=== PATIENT | female | born 2000 | race Two or more races ===

== ENCOUNTER 2024-05-08 18:09 | Emergency (ER) | payer MEDICAID, SELFPAY ==
[2024-05-08 18:21] VITALS: BP 95/56; PULSE 79; RESP 19; TEMP 36.7; O2SAT 99; BMI 27.3
--- NOTE | 2024-05-08 18:40 | XR_ITS ---
Examination: Complete OB ultrasound, less than 14 weeks, transabdominal Date and time of exam: May 08, 2024 at 1929 hrs. Indications: Onset vaginal bleeding with pelvic pain today Technique: Obstetrical ultrasound images less than 14 weeks performed via transabdominal imaging Findings: A normal shaped single intrauterine gestation is present in the uterus. pole 2.9 cm corresponds to 9 weeks 5 days gestational age Cardiac motion 176 BPM No subchorionic hemorrhage Ultrasonographic survey of visible and placental structures unremarkable. Amniotic fluid volume appears appropriate for this estimated gestational age. Right ovary 3.6 x 1.8 x 2.3 cm arterial flow Left ovary 2.0 x 1.0 x 1.5 cm arterial flow Impression: Viable intrauterine gestation 9 weeks 5 days No subchorionic hemorrhage.
--- NOTE | 2024-05-08 18:40 | PD.EDRME ---
Rapid Medical Screening Exam [facility] Arrival date/time: 05/08/24 18:09 24F at approximately 10 weeks and with no significant PMH presents to ED with 1 day of vaginal bleeding/spotting and pelvic pain. Patient denies dysuria. Chief Complaint: Vaginal Bleeding Time Seen by Provider: 05/08/24 21:42 Vital signs: Vital Signs Temperature 98.1 F 05/08/24 18:21 Pulse Rate 79 05/08/24 18:21 Respiratory Rate 19 05/08/24 18:21 Blood Pressure 95/56 L 05/08/24 18:21 Pulse Oximetry (%) 99 05/08/24 18:21 Oxygen Delivery Method Room Air 05/08/24 18:21
[2024-05-08 19:17] LABS: Basophils % (Auto) 0 % (0-2.5); Eosinophils # (Auto) 0.1 Thou/mm3 (0.0-0.5); Eosinophils % (Auto) 1 % (0-10); Hematocrit 32.1 % (36.0-46.0); Hemoglobin 11.1 g/dL (12.0-16.0); Immature Granulocytes % (Auto) 0 % (0-0); Immature Granulocytes Auto 0.02 Thou/mm3 (0.00-0.00); Lymphocytes # (Auto) 1.8 Thou/mm3 (1.0-4.8); Lymphocytes % (Auto) 23 % (10-50); Mean Corpuscular HGB Conc 34.6 g/dl (31.0-37.0); Mean Corpuscular Hemoglobin 30.2 pg (25.0-35.0); Mean Corpuscular Volume 87 fL (80-100); Monocytes # (Auto) 0.5 Thou/mm3 (0.0-0.8); Monocytes % (Auto) 6 % (0-12); Neutrophils # (Auto) 5.6 Thou/mm3 (1.8-7.7); Neutrophils % (Auto) 69 % (37-80); Nucleated Red Blood Cell % 0 /100 WBC (0); Platelet Count 221 Thou/mm3 (140-440); RDW Standard Deviation 38.9 fL (36.4-46.3); Red Blood Count 3.68 Miln/mm3 (4.00-5.20)
[2024-05-08 19:45] LABS: Collection Type, Urine Clean Catch
[2024-05-08 20:17] LABS: Alanine Aminotransferase 9 U/L (10-49); Albumin/Globulin Ratio 1.5 (1.2-2.2); Alkaline Phosphatase 35 U/L (46-116); Anion Gap 5 (7-16); Aspartate Amino Transferase 13 U/L (0-34); BUN/Creatinine Ratio 10 Ratio (12-20); Beta HCG,Quantitative 77390 mIU/mL (<5.0); Bilirubin,Total 0.2 mg/dL (0.3-1.2); Blood Urea Nitrogen 6 mg/dL (9-23); Calcium 9.3 mg/dL (8.3-10.6); Calcium (Corrected) 9.3 mg/dL (8.5-10.1); Carbon Dioxide 24.4 mMol/L (20.0-31.0); Chloride 106 mMol/L (98-107); Creatinine (Component) 0.6 mg/dL (0.6-1.3); Estimated Creatinine Clearance 131.2 mL/min (>60); Globulin 2.7 gm/dL (2.3-3.5); Glucose 97 mg/dL (74-106); Osmolality,Calculated 267 (275-295); Potassium 3.4 mMol/L (3.4-5.1); Sodium 135 mMol/L (136-145); Total Protein 6.7 gm/dL (5.7-8.2); eGFR > 60 See Note
[2024-05-08 20:21] LABS: Bilirubin,Urine Negative (Negative); Blood,Urine 3+ (Negative); Clarity,Urine Clear (Clear/Hazy); Color,Urine Colorless (Lt Yel-Yel); Glucose, Urine Negative (Negative); Ketones,Urine Negative (Negative); Leukocyte Esterase,Urine Negative (Negative); Nitrite,Urine Negative (Negative); PH,Urine 7.5 (5.0-7.0); Protein,Urine Negative (Neg - Trace); RBC,Urine 2 /hpf (0-3); Specific Gravity,Urine 1.009 (1.001-1.035); Squamous Epithelial Cell,Urine 3 /hpf (0-5); Urobilinogen,Urine Negative mg/dL (0.0-1.0); WBC,Urine 2 /hpf (0-5)
--- NOTE | 2024-05-08 21:46 | PD.EDVAGBL ---
ED OB Contraction Preg RMI/HPI General Chief complaint: Vaginal Bleeding Stated complaint: Vaginal bleeding today, 10 weeks OB Time Seen by Provider: 05/08/24 21:42 Arrival date/time: 05/08/24 18:09 24F at approximately 10 weeks and with no significant PMH presents to ED with 1 day of vaginal bleeding/spotting and pelvic pain. Patient denies dysuria. Limitations: no limitations Related Data Home Medications ?Medication ?Instructions ?Recorded ?Confirmed No Known Home Medications 04/01/24 04/01/24 Allergies Allergy/AdvReac Type Severity Reaction Status Date / Time No Known Allergies Allergy Verified 04/01/24 07:34 Review of Systems Review of Systems Systems Reviewed: All systems reviewed, normal except as documented Constitutional Constitutional: Reports system reviewed and no additional complaints, except as documented, Denies fever(s) and Denies headache(s) ENT Ears, Nose, Mouth, and Throat: Denies disequilibrium and Denies headache(s) Cardiovascular Cardiovascular: Reports system reviewed and no additional complaints, except as documented, Denies chest pain and Denies dyspnea Respiratory Respiratory: Reports system reviewed and no additional complaints, except as documented, Denies cough and Denies dyspnea Gastrointestinal Gastrointestinal: Reports system reviewed and no additional complaints, except as documented, Denies abdominal pain, Denies nausea and Denies vomiting Genitourinary Genitourinary: Reports as per HPI, Reports abnormal vaginal bleeding and Reports pelvic pain Neurologic Neurologic: Reports system reviewed and no additional complaints, except as documented, Denies confusion, Denies disequilibrium and Denies headache(s) Psychiatric Psychiatric: Denies confusion Past Medical History Past Medical History NEUROLOGIC: Negative Neurological Disorders CARDIAC: Negative Cardiac Disorders or Congestive Heart Failure RESPIRATORY: Negative Chronic Obstructive Pulmonary Disease (COPD) GASTROINTESTINAL: Negative Gastrointestinal Disorders GENITOURINARY: Negative Genitourinary Disorders or Renal Disease REPRODUCTIVE: Positive Previous Pregnancies (x1) MUSCULOSKELETAL: Negative Musculoskeletal Disorders ENDOCRINE: Negative Endocrine Disorders, Diabetes Mellitus Type 1 or Diabetes Mellitus Type 2 HEMATOLOGIC: Negative Blood Disorders OTHER HISTORY: Positive Chicken Pox; Negative Autoimmune Disease, Blood Transfusions, Anesthesia Reactions or Cancer Family History FAMILY HISTORY: Positive Family Surgery; Negative Family Psychiatric Problems, Family Respiratory Disorders, Family Cardiac Disorders, Family Gastrointestinal Problems, Family Cancer or Family Anesthesia Reaction Surgical History SURGICAL: Positive Section Social History SMOKING STATUS: Never smoker ED Exam General Limitations: Present no limitations General appearance: Present alert and in no apparent distress Head Head exam: Present atraumatic Eye Eye exam: Present normal appearance, PERRL and EOMI ENT ENT exam: Present normal exam, normal oropharynx and mucous membranes moist Neck Neck exam: Present normal inspection, full ROM and trachea midline Chest Chest inspection: Present normal inspection and symmetric chest wall rise Respiratory Respiratory exam: Present normal lung sounds bilaterally Cardiovascular Cardiovascular exam: Present regular rate, normal rhythm and normal heart sounds Abdominal Exam Abdominal exam: Present soft and normal bowel sounds Extremities Exam Extremities exam: Present normal inspection and full ROM Back Exam Back exam: Present normal inspection and full ROM Neurological Exam Neurological exam: Present alert, oriented X3 and CN II-XII intact Psychiatric Psychiatric exam: Present normal affect and normal mood Skin Skin exam: Present warm, dry, intact and normal color Course Quality Measures none Orders Category Date Time Status US OB <= 14 weeks fetus Stat Exams 05/08/24 18:40 Completed ABO/RH Type Stat Lab 05/08/24 18:50 Completed Beta HCG,Quantitative Stat Lab 05/08/24 18:50 Completed CBC Stat Lab 05/08/24 18:50 Completed CMP [Comprehensive Metabolic Panel] Stat Lab 05/08/24 18:50 Completed UA [Urinalysis] Stat Lab 05/08/24 19:07 Completed Urine Culture Stat Lab 05/08/24 19:07 Received Vital Signs Vital signs: Vital Signs Temperature 98.1 F 05/08/24 18:21 Pulse Rate 79 05/08/24 18:21 Respiratory Rate 19 05/08/24 18:21 Blood Pressure 95/56 L 05/08/24 18:21 Pulse Oximetry (%) 99 05/08/24 18:21 Oxygen Delivery Method Room Air 05/08/24 18:21 O2 at 99% on RA and WNLs Vaginal Bleeding MDM Narrative MDM Narrative: 24F at approximately 10 weeks and with no significant PMH presents to ED with 1 day of vaginal bleeding/spotting and pelvic pain. Patient denies dysuria. Physical exam reveals no pelvic tenderness. Patient is afebrile, calm, and alert. US reveals IUP with normal FHR. Beta HCG around 77k. No leukocytosis. Mild anemia. CMP unremarkable. UA clean. Health Outreach Worker given. Patient data [place] [facility] [place] Clinical information provided by:: patient Social determinants that could affect healthcare access:: none Patient has the following chronic illnesses:: none How is presenting disease/condition affected by chronic disease/condition?: no chronic disease Evaluation data The following diagnostics were reviewed and interpreted by me:: lab results and radiology exam(s) Lab and/or radiology exams considered but not ordered:: ordered Interpretation Summary: above Medications / Prescriptions Medications or Prescriptions considered but not ordered:: not ordered Medication administrations:: n/a Consultations Consultation(s) initiated? (list below): No Diagnosis Vaginal Bleeding Differential Diagnosis: missed , threatened , dysfunctional uterine bleeding, menometrorrhagia, incomplete , ectopic without intrauterine and vaginal bleeding Most likely diagnosis given after review of the tests above:: vaginal bleeding Admission Indicated Admission indicated?: not indicated Admission Request Was there a request for admission?: No Disposition Plan Disposition Plan: Discharge Discharge Attestation Discharge Attestation: The patient and all family members were given an opportunity to ask questions and understood the discharge instructions. Discharge instructions specifically effects, indications for sooner follow up or return to the emergency department, and the expected course of current diagnosis. Patient condition: Stable Discharge Plan Plan Patient Disposition: HOME (Self Care) Disposition Comment: Stable Prescriptions/Referrals Prescriptions/Med Rec: No Action No Known Home Medications Referrals: Pk Matias MD [Primary Care Provider] - In 1 week Problem List Clinical Impression: Vaginal bleeding Patient/Caregiver Discharge Instructions Additional Instructions: Please follow-up with PCP/OBGYN within 24-48 hours and return immediately if symptoms worsen. Print Language: Swedish Stand Alone Forms: Patient Portal Info Letter BRINA/ELSIE Supervising Physician KRISTINA Supervising Physician: Dr. León
[2024-05-08 21:54] VITALS: BP 100/65; PULSE 80; RESP 16; TEMP 36.7; O2SAT 99
== END 2024-05-08 21:58 | disposition home or self-care (01) ==
PROVIDERS: Physician Assistant; Emergency Provider Emergency Medicine; PCP Family Medicine
DX: O20.9 Hemorrhage in early pregnancy, unspecified (principal); Z3A.09 9 weeks gestation of pregnancy
CPT/HCPCS: 36415; 76801; 80053; 81001; 84702; 85025; 86900; 86901; 87086; 99284

== ENCOUNTER 2024-06-26 15:33 | Emergency (ER) | payer MEDICAID, SELFPAY ==
--- NOTE | 2024-06-26 16:16 | PC.NURSE ---
called pt back, no answer at this time
--- NOTE | 2024-06-26 16:37 | PC.NURSE ---
CALLED PT BACK, NO ANSWER AT THIS TIME
--- NOTE | 2024-06-26 17:05 | PC.NURSE ---
CALLED PT BACK, NO ANSWER AT THIS TIME
== END 2024-06-26 17:23 | disposition left against medical advice (07) ==
PROVIDERS: Emergency Provider Emergency Medicine
DX: Z53.21 Procedure and treatment not carried out due to patient leaving prior to being seen by health care provider (principal)

== ENCOUNTER 2024-11-15 09:47 | Observation (INO) | payer MEDICAID, SELFPAY ==
[2024-11-15] VITALS (9 sets, daily range): BP systolic 115; BP diastolic 57; PULSE 63–74; RESP 18–98; TEMP 36.5; O2SAT 97–98; BMI 31.8
== END 2024-11-15 11:17 | disposition home or self-care (01) ==
PROVIDERS: Admitting Provider Obstetrics & Gynecology; Visit Provider Obstetrics & Gynecology
DX: Z34.83 Encounter for supervision of other normal pregnancy, third trimester (principal); Z3A.37 37 weeks gestation of pregnancy
CPT/HCPCS: 59899

== ENCOUNTER 2024-11-24 03:20 | Observation (INO) | payer MEDICAID, SELFPAY ==
[2024-11-24] VITALS (16 sets, daily range): BP systolic 118; BP diastolic 64; PULSE 56–82; RESP 18–98; TEMP 36.7; O2SAT 97–100; BMI 31.8
[2024-11-24] MEDS: RINGERS LACTATED 1000 ML 1,000 ML 999 ML IV (04:02)
[2024-11-24] MEDS: TERBUTALINE SULF INJ 1 MG/ML VIAL 0.25 MG SC (04:08)
== END 2024-11-24 05:10 | disposition home or self-care (01) ==
PROVIDERS: Admitting Provider Obstetrics & Gynecology; Visit Provider Obstetrics & Gynecology
DX: O47.1 False labor at or after 37 completed weeks of gestation (principal); Z3A.38 38 weeks gestation of pregnancy
CPT/HCPCS: 59899; 96372; G0378; J3105; J7120

== ENCOUNTER 2024-12-04 11:45 | Inpatient (IN) | payer MEDICAID, SELFPAY ==
[2024-12-04] VITALS (24 sets, daily range): BP systolic 107–137; BP diastolic 58–76; PULSE 58–95; RESP 12–97; TEMP 36.4–36.8; O2SAT 95–100; BMI 34.4
[2024-12-04] MEDS: FAMOTIDINE INJ 10 MG/ML VIAL 2 ML 20 MG IV (13:12)
[2024-12-04] MEDS: METOCLOPRAMIDE INJ 5 MG/ML VIAL 2 ML 10 MG IVP (13:12)
[2024-12-04] MEDS: ceFAZolin/D5W 2 GM IV 2 GM/100 ML BAG IV (13:12)
[2024-12-04 13:13] LABS: Basophils % (Auto) 1 % (0-2.5); Eosinophils # (Auto) 0.2 Thou/mm3 (0.0-0.5); Eosinophils % (Auto) 2 % (0-10); Hematocrit 34.2 % (36.0-46.0); Hemoglobin 11.8 g/dL (12.0-16.0); Immature Granulocytes % (Auto) 1 % (0-0); Immature Granulocytes Auto 0.07 Thou/mm3 (0.00-0.00); Lymphocytes # (Auto) 1.5 Thou/mm3 (1.0-4.8); Lymphocytes % (Auto) 20 % (10-50); Mean Corpuscular HGB Conc 34.5 g/dl (31.0-37.0); Mean Corpuscular Hemoglobin 29.5 pg (25.0-35.0); Mean Corpuscular Volume 86 fL (80-100); Monocytes # (Auto) 0.6 Thou/mm3 (0.0-0.8); Monocytes % (Auto) 8 % (0-12); Neutrophils # (Auto) 5.1 Thou/mm3 (1.8-7.7); Neutrophils % (Auto) 69 % (37-80); Nucleated Red Blood Cell % 0 /100 WBC (0); Platelet Count 194 Thou/mm3 (140-440); RDW Standard Deviation 42.6 fL (36.4-46.3); White Blood Count 7.4 Thou/mm3 (3.6-11.0)
--- NOTE | 2024-12-04 13:21 | PD.LDHP ---
Documentation for date of: 12/04/24 OB Labor/Induct. HPI History of Present Illness : 2 Term pregnancies: 1 pregnancies: 0 Living children: 1 History of Abortions: Spontaneous and Elective: 0 History of sections: No History of : No History of present illness: 24 y/o , with previous Csection , was seen earlier in the office with concerns of contractions which are regular and painful. Patient showed regular contraction on NST and had an occasional late deceleration on admission. Denied any leaking bleeding . was complicated by gestational diabetes controlled by diet and exrecise. No other complications History of Present Dating criteria: LMP confirmed by 2nd trimester US Abnormal ultrasound findings: anatomy posterior placenta Normal anatomy , Macrosomia Past Medical History Surgical History SURGICAL: Negative Section Meds Home Medications and Allergies Home Medications ?Medication ?Instructions ?Recorded ?Confirmed ?Type vitamin-ferrous fumarate 1 tab PO QDAY 11/24/24 12/04/24 History 28 mg iron-folic acid 800 mcg tablet ( Tablet) Allergies Allergy/AdvReac Type Severity Reaction Status Date / Time No Known Allergies Allergy Verified 12/04/24 12:17 OB Exam Physical Exam Vital signs: Pulse Ox 100 12/04/24 13:17 Constitutional Constitutional: no acute distress Routine HEENT Exam Head: Present normocephalic and atraumatic Eye: Present EOMI and PERRL ENT: Present mucous membranes moist Routine Neck Exam Neck: Present supple and trachea midline Routine Cardiovascular Exam Cardiovascular: Present RRR Routine Abdominal Exam Abdominal: Present soft and normoactive bowel sounds Detailed Labor and Delivery Exam Comments: fingertip Regular contractions Routine Extremities Exam Extremities: Present full ROM Routine Skin Exam Skin: Present intact, dry and warm Routine Neurological Exam Neurological: Present alert, oriented X3 and CN II-XII intact Routine Psychiatric Exam Psychiatric: Present normal affect and normal thought process OB Results Labs 12/04/24 19:52 Labs: Short CBC 12/04/24 Range/Units 12:55 WBC 7.4 (3.6-11.0) Thou/mm3 Hgb 11.8 L (12.0-16.0) g/dL Hct 34.2 L (36.0-46.0) % Plt Count 194 (140-440) Thou/mm3 Impressions Impression: 24 y/o @39w5d per 2nd trimester US admitted for RLTCS GDM Diet controlled Anatomy normal , macrosomia Occasional late decel recovered with maneovers OB Assessment & Plan Additional Plan Additional Plan Comment: DVT prophylaxis antibiotic prophylaxis
[2024-12-04 14:36] LABS: Syphilis Nonreactive (Nonreactive)
[2024-12-04] MEDS: OXYTOCIN in NS 20 units 20 UNIT/1,000 ML BAG 125 UNIT IV ×2 (14:46→22:55)
[2024-12-04] MEDS: ONDANSETRON INJ 2 MG/ML INJ 2 ML 4 MG IVP (15:17)
[2024-12-04] MEDS: KETOROLAC INJ 30 MG/ML VIAL IVP ×2 (15:18→23:56)
[2024-12-04] MEDS: DiphenhydrAMINE INJ 50 MG/ML VIAL 25 MG IVP (17:31)
[2024-12-04 20:28] LABS: Basophils % (Auto) 0 % (0-2.5); Eosinophils # (Auto) 0.1 Thou/mm3 (0.0-0.5); Eosinophils % (Auto) 1 % (0-10); Hematocrit 33.9 % (36.0-46.0); Hemoglobin 11.5 g/dL (12.0-16.0); Immature Granulocytes % (Auto) 1 % (0-0); Immature Granulocytes Auto 0.07 Thou/mm3 (0.00-0.00); Lymphocytes # (Auto) 1.2 Thou/mm3 (1.0-4.8); Lymphocytes % (Auto) 12 % (10-50); Mean Corpuscular HGB Conc 33.9 g/dl (31.0-37.0); Mean Corpuscular Hemoglobin 29.3 pg (25.0-35.0); Mean Corpuscular Volume 86 fL (80-100); Monocytes # (Auto) 0.7 Thou/mm3 (0.0-0.8); Monocytes % (Auto) 7 % (0-12); Neutrophils # (Auto) 8.3 Thou/mm3 (1.8-7.7); Neutrophils % (Auto) 80 % (37-80); Nucleated Red Blood Cell % 0 /100 WBC (0); Platelet Count 183 Thou/mm3 (140-440); Red Blood Count 3.93 Miln/mm3 (4.00-5.20); White Blood Count 10.4 Thou/mm3 (3.6-11.0)
--- NOTE | 2024-12-04 22:45 | OBDSUM_ITS ---
Data (Garnica) Data Hx Section: No : 2 Term: 1 : 0 Livin Abortions: Spontaneous & Theraputic: 0 Delivery Data (Garnica) Labor Data Initiation of labor: Spontaneous Induction/Augmentation Agent: None ROM date: 12/04/24 ROM time: 13:51 Amniotic membrane rupture type: Artificial Amniotic fluid description: Clear Delivery Data Onset of labor date: 12/04/24 Onset of labor time: 13:52 Complete dilation date: 12/04/24 Complete dilation time: 13:52 delivery date: 12/04/24 delivery time: 13:52 Gestational age (weeks): 39 Gestational age (days): 5 Placenta delivery date: 12/04/24 Placenta delivery time: 13:53 Stage 1 total time: Labor - Stage 1 Duration 0 minutes Delivered by: Deja CASILLAS Delivery nurse: Marcia [place] nurse: arnel Networking Technology Instructor at delivery: No Support person(s) at delivery: patient's friend Delivery Method Delivery method: Low Transverse Presentation: Vertex Anesthesia Type Anesthesia Type: None Placenta Placenta delivery description: Manual Removal Cord blood sent to lab: Yes cord blood collection: Cord Blood Type EBL Estimated blood loss (ml): 500 Umbilical Cord cord description: 3 Vessels Data (Garnica) Data order: 1 's gender: Female weight (gms): 3710 g Weight (pounds): 8 lbs and 2.9 ozs 1 minute: 8 5 minutes: 9
--- NOTE | 2024-12-04 22:48 | PD.GYNPROC ---
Operative Note - REPEATER OPERATOR Procedure Date of procedure: 12/04/24 Procedure Performed: repeat Low transverse Csection Indication: previous Csection x1 Pre-Op diagnosis: same Post-Op diagnosis: same Anesthesia type: Spinal Procedure description: Informed consent was obtained and the patient was taken to the operating room.? Identity was confirmed by double identifiers and she was placed on the operating table.The abdomen and perineum were prepped in the usual sterile fashion and a Holt catheter was placed to continuous drainage.? Sterile drapes were applied.??A Pfannenstiel skin incision was made with a scalpel and carried to the subcutaneous fat up to the rectus fascia.? The rectus fascia was incised on either side of the midline and the incisions were extended bilaterally.? The fascia was gently dissected off the ventral surface of the rectus muscle only superiorly. peritoneum opened after making sure no adhesions are there underneath. bladder flap carefully created, then hysterotomy incision made and extended bluntly with finger. Rupture of membranes revealed clear fluid. The baby was found cephalic presentation and was delivered via vaccum assisted delivery. the umbilical cord , was doubly clamped, divided and the was handed over to the waiting team. The placenta delivered by controlled cord traction . The interior of the uterus was now thorougly cleaned of all blood and debris and membranes.?The? hysterotomy was closed using 0 vicryl suture in double layers. Once the repair was completed the hysterotomy was inspected, was noted to be adequately hemostatic. surgicele powder used for hemostaisi. Then the rectus fascia was repaired using Vicryl 0 in a running fashion.? The subcutaneous layer was now, approximated with 3-0 vicryl in double layers.? All bleeding points were cauterized using the Bovie.?The skin was closed using 4-0 Monocryl in a subcuticular fashion.? The skin was cleaned and a sterile dressing was applied. The patient was now undraped, the abdomen and back were thoroughly cleaned and she was now transferred to the recovery room in a stable Estimated blood loss (ml): 500 Surgical staff Operation Date: 12/04/24 13:15 Case Staff SUGAR GRINDER: Neo Downey RN First Assistant: Makenna Aly Diagnosis Problem List Completed Was Problem List Reviewed/Reconciled?: Yes
[2024-12-05] MEDS: HYDROcodone/APAP 5/325 TABLET 2 TAB PO ×3 (01:58→19:20)
[2024-12-05 04:28] VITALS: BP 114/63; PULSE 79; RESP 17; TEMP 36.5; O2SAT 98
[2024-12-05] MEDS: KETOROLAC INJ 30 MG/ML VIAL IVP (06:52)
[2024-12-05 08:00] VITALS: BP 109/57; PULSE 69; RESP 18; TEMP 36.3; O2SAT 98
--- NOTE | 2024-12-05 08:53 | ESPR_ITS ---
Subjective Subjective Interval history: stephany is doing well, denied any fever , vaginal bleeding , pain . Has been tolerating diet , no nausea vomitting Exam Vital Signs Temp Pulse Resp BP Pulse Ox O2 Del Method 97.7 F 79 17 114/63 98 Room Air 12/05/24 04:28 12/05/24 04:28 12/05/24 04:28 12/05/24 04:28 12/05/24 04:28 12/05/24 04:28 Constitutional Constitutional: no acute distress Routine HEENT Exam Head: Present normocephalic and atraumatic Eye: Present EOMI and PERRL ENT: Present mucous membranes moist Routine Neck Exam Neck: Present supple and trachea midline Routine Respiratory Exam Respiratory: Present chest non-tender, lungs clear, normal breath sounds and no resp distress Routine Cardiovascular Exam Cardiovascular: Present RRR Routine Abdominal Exam Abdominal: Present soft and normoactive bowel sounds Routine Extremities Exam Extremities: Present full ROM Routine Skin Exam Skin: Present intact, dry and warm Routine Neurological Exam Neurological: Present alert, oriented X3 and CN II-XII intact Routine Psychiatric Exam Psychiatric: Present normal affect and normal thought process Objective Labs 12/04/24 19:52 Labs: Laboratory Results - last 24 hr 12/04/24 12/04/24 12:55 19:52 WBC 7.4 10.4 D RBC 4.00 3.93 L Hgb 11.8 L 11.5 L Hct 34.2 L 33.9 L MCV 86 86 MCH 29.5 29.3 MCHC 34.5 33.9 RDW Std Deviation 42.6 43.0 Plt Count 194 183 Neut % (Auto) 69 80 Lymph % (Auto) 20 12 Alger % (Auto) 8 7 Eos % (Auto) 2 1 Baso % (Auto) 1 0 Neut # (Auto) 5.1 8.3 H Lymph # (Auto) 1.5 1.2 [place] # (Auto) 0.6 0.7 Eos # (Auto) 0.2 0.1 Baso # (Auto) 0.0 0.0 Immature Gran # (Auto) 0.07 H 0.07 H Absolute Nucleated RBC 0.00 0.00 Immature Gran % 1 H 1 H Nucleated RBC % 0 0 Syphilis Serology Nonreactive Blood Type A Positive Antibody Screen NEGATIVE Blood Bank Wristband ID Yes Assessment & Plan Assessment Comment Assessment comment: 24 Y/O s/p RLTCS , POD#1 VSS Meeting all PO milestone Plan Comment Plan Comment: anticipate discharge tomorrowcontinue PO care Time Spent With Patient Time: Total time spent is greater than 50% in coordination of care (as documented) at patient's floor/unit and/or counseling patient:
[2024-12-05 12:00] VITALS: BP 116/64; PULSE 89; RESP 18; TEMP 36.6; O2SAT 98
--- NOTE | 2024-12-05 12:05 | PC.NURSE ---
Dr Short at bedside rounding, Packing removed at bedside by dr Short as well as gaspar catheter. Minimal bleeding noted during packing removal. Pt tolerated well, vs within normal range. Pt left comfortable in bed.
[2024-12-05 17:52] VITALS: BP 115/72; PULSE 70; RESP 16; TEMP 36.9; O2SAT 97
[2024-12-05 21:02] VITALS: BP 144/65; PULSE 74; RESP 18; TEMP 36.9; O2SAT 98
[2024-12-06 00:40] VITALS: BP 120/71; PULSE 68; RESP 18; TEMP 36.8; O2SAT 98
[2024-12-06] MEDS: HYDROcodone/APAP 5/325 TABLET 2 TAB PO ×2 (02:21→09:47)
[2024-12-06 04:52] VITALS: BP 115/66; PULSE 64; RESP 14; TEMP 36.5; O2SAT 98
[2024-12-06] MEDS: IBUPROFEN TAB 400 MG TABLET 800 MG PO (05:19)
[2024-12-06 07:45] VITALS: BP 127/80; PULSE 74; RESP 17; TEMP 36.6; O2SAT 98
--- NOTE | 2024-12-06 13:35 | PD.LDDS ---
DS: Providers Provider Date of admission: 12/04/24 12:58 Primary care physician: Physician No Primary/Family Admitting Provider: Marybel Short MD Attending Provider on Admission: Champ Cosby MD Consults: 12/04/24 13:30 Referral Routine Comment: Attending Provider on DC: Champ Cosby MD Discharging Provider: Champ Cosby MD Anticipated date of discharge: 12/06/24 DS: Diagnosis Discharge Diagnosis (1) delivery delivered: Status: Acute Assessment & Plan: BENIGN POST-OPERATIVE COURSE Problem List Completed Was Problem List Reviewed/Reconciled?: Yes Summary/Hosp Course Brief History: 24 y/o , with previous Csection , was seen earlier in the office with concerns of contractions which are regular and painful. Patient showed regular contraction on NST and had an occasional late deceleration on admission. Denied any leaking bleeding . was complicated by gestational diabetes controlled by diet and exrecise. No other complications Peripartum Data Delivery Method: Low Transverse Laceration Description: no Procedures: Procedures Operation Date: 12/04/24 13:15 Actual Procedure Side Surgeon p in OB Not Applicable Marybel Short MD complications: none Status at Discharge Functional status at discharge: independent ambulation Time Spent with Patient Time attestation: Total time spent providing and/or coordinating discharge services: Time spent: Less than 30 minutes Specific discharge activities: AVOID HEAVY EXERTION Exam Vital Signs Temp Pulse Resp BP Pulse Ox O2 Del Method 97.9 F 74 17 127/80 98 Room Air 12/06/24 07:45 12/06/24 07:45 12/06/24 07:45 12/06/24 07:45 12/06/24 07:45 12/06/24 07:45 Constitutional Constitutional: no acute distress Routine HEENT Exam Head: Present atraumatic Eye: Present EOMI ENT: Present mucous membranes moist Routine Chest/Breast/Axilla Exam Comments: UNLABORED RESPIRATION Routine Abdominal Exam Abdominal: Present soft and wound Comments: NO DRAINAGE , NO INDURATION Routine Extremities Exam Comments: NO PHLEBITIS Routine Neurological Exam Neurological: Present alert and oriented X3 Discharge Plan Problem List Was Problem List Reviewed/Reconciled?: Yes Plan Patient Disposition: HOME (Self Care) Prescriptions/Referrals Prescriptions/Med Rec: No Action vit-iron fum-folic ac [ Tablet] 28 mg iron- 800 mcg tablet 1 tab PO QDAY Referrals: No Primary/Family,Physician [Primary Care Provider] - Patient/Caregiver Discharge Instructions Education Materials: After a , : Caring for Yourself, C Section Dc Print Language: Congolese Stand Alone Forms: Ekta Award Info., Patient Portal Info Letter Planned Discharge Date 12/06/24
== END 2024-12-06 15:05 | disposition home or self-care (01) | DRG 540 ==
LOC: S4SX 14:14 → S4NX 15:04
PROVIDERS: Admitting Provider Student in an Organized Health Care Education/Training Program; Visit Provider Obstetrics & Gynecology
PROC: 10D00Z1 Extraction of Products of Conception, Low, Open Approach (ICD-10-PCS; CPT 59514; principal; 2024-12-04 13:00)
DX: O34.211 Maternal care for low transverse scar from previous cesarean delivery (principal); O36.63X0 Maternal care for excessive fetal growth, third trimester, not applicable or unspecified; O24.420 Gestational diabetes mellitus in childbirth, diet controlled; O76 Abnormality in fetal heart rate and rhythm complicating labor and delivery; Z37.0 Single live birth; Z3A.39 39 weeks gestation of pregnancy
CPT/HCPCS: 36415; 59025; 59409; 85025; 86780; 86850; 86900; 86901; 94762; A4314; A4649; J0689; J1200; J1885; J2274; J2371; J2405; J2590; J2765; J3010; J3490; A9270; J2270